=== PATIENT | male | born 1975 | race American Indian/Alaskan Native ===

== ENCOUNTER 2018-04-07 11:38 | Inpatient (IN) | payer OTHER ==
[~2018-04-07] VITALS: Ht 177.8 cm; Wt 122.1 kg
[2018-04-07] MEDS ORDERED: ZOSYN 3.375GM+NS 50ML 50 ML IV ONE (12:20)
[2018-04-07] MEDS ORDERED: SODIUM CHLORIDE 0.9% 50 ML IV ONE (12:21)
[2018-04-07 12:25] LABS: BASOPHILS % (AUTO) 0.6 % (0.0-5.0); EOSINOPHILS % (AUTO) 2.4 % (0.0-8.0); HEMATOCRIT 45.7 % (42-54); LYMPHOCYTES % (AUTO) 17.5 % (21.0-51.0); MEAN CORPUSCULAR HEMOGLOBIN 30.8 pg (27.0-33.0); MEAN CORPUSCULAR HGB CONC 33.5 g/dL (32.0-36.0); MEAN CORPUSCULAR VOLUME 92.1 fL (79-99); MONOCYTES % (AUTO) 20.2 % (3.0-13.0); NEUTROPHILS % (AUTO) 59.3 % (40.0-77.0); NUCLEATED RED BLOOD CELLS 0.1 % (0.0-0.19); PLATELET COUNT (AUTO) 106 K/uL (130-400); RED BLOOD CELL COUNT(AUTO) 4.96 MIL/uL (4.50-6.20); RED CELL DISTRIBUTION WIDTH 13.8 % (11.0-15.5); WHITE BLOOD COUNT (AUTO) 4.5 K/uL (4.8-10.8)
[2018-04-07 13:02] LABS: APPEARANCE,URINE Clear (CLEAR); BILIRUBIN,URINE Negative (NEGATIVE); COLOR,URINE Dark Yellow (YELLOW); GLUCOSE, URINE (UA) >=1000 mg/dL (NEGATIVE); KETONES,URINE Trace mg/dL (NEGATIVE); LEUKOCYTE ESTERASE ,URINE Negative (NEGATIVE); NITRATE,URINE Negative (NEGATIVE); OCCULT BLOOD,URINE Negative (NEGATIVE); PH,URINE 6.5 (5.0-8.0); PROTEIN,URINE POS 1+ (NEGATIVE)
[2018-04-07 13:04] LABS: POTASSIUM 3.7 mmol/L (3.5-5.1)
[2018-04-07 13:07] LABS: BACTERIA,URINE Rare /HPF (None Seen); RBC,URINE 0-1 /HPF (0-1); SQUAMOUS EPITHELIAL CELL,UR Rare /HPF (0-2); WBC,URINE 0-1 /HPF (0-1)
[2018-04-07 13:08] LABS: ALBUMIN 3.7 g/dL (3.5-5.0); TOTAL PROTEIN, SERUM 8.4 g/dL (6.0-8.3)
[2018-04-07] MEDS ORDERED: IOHEXOL-350 75 ML VIAL IV ONE (13:08)
[2018-04-07] MEDS ORDERED: VANCOMYCIN 1GM+NS 250ML 250 ML IV ONE (13:45)
[2018-04-07] MEDS ORDERED: VANCOMYCIN PROTOCOL PER PHARMACY IV PRN (15:30)
[2018-04-07] MEDS ORDERED: VANCOMYCIN 1GM+NS 250ML 250 ML IV SCH (15:30)
[2018-04-07] MEDS ORDERED: HYDRALAZINE HCL 20 MG/ML VIAL IV PRN (15:30)
[2018-04-07] MEDS ORDERED: DOXYCYCLINE 100MG+NS 250ML 250 ML IV SCH (16:00)
[2018-04-07 17:02] LABS: HEMOGLOBIN A1C 9.3 % (4.0-6.0)
[2018-04-07 17:06] LABS: % IRON SATURATION 48.5 % (30-44)
[2018-04-07 17:50] VITALS: BP 147/75
[2018-04-07] MEDS ORDERED: COMPOUND IV REFRIGERATED 1 EACH IVSOLN MISC PRN (19:30)
[2018-04-07] MEDS: ACETAMINOPHEN-CODEINE 300/30MG TAB PO PRN (19:50)
[2018-04-07 20:24] VITALS: BP 142/84
[2018-04-07] MEDS: MORPHINE SULFATE 4 MG/1ML SYG IM PRN (23:44)
[2018-04-07] MEDS: SODIUM CHLORIDE 0.9% 1000ML 1,000 ML IV SCH (23:47)
[2018-04-07] MEDS: METFORMIN HCL 500 MG TABLET PO SCH (23:52)
[2018-04-07] MEDS: CEFTAZIDIME PENTAHYDRATE 2 GM/VIAL IVP SCH (23:52)
[2018-04-08] MEDS: VANCOMYCIN 1.75 GM in SODIUM CHLORIDE 0.9% 250 ML IV SCH ×3 (00:02→22:28)
[2018-04-08 00:28] VITALS: BP 132/76
[2018-04-08] MEDS: SODIUM CHLORIDE 0.9% 1000ML 1,000 ML IV SCH ×3 (01:46→19:39)
[2018-04-08 04:14] VITALS: BP 134/83
[2018-04-08 04:59] LABS: CHOLESTEROL 136 mg/dL (<200); HDL CHOLESTEROL 29 mg/dL (29-71); LDL DIRECT 95 mg/dL (0-99); TRIGLYCERIDES 110 mg/dL (30-200)
[2018-04-08] MEDS: CEFTAZIDIME PENTAHYDRATE 2 GM/VIAL IVP SCH ×2 (06:03→17:57)
[2018-04-08 07:00] VITALS: BP 140/84
[2018-04-08] MEDS: GLIPIZIDE 5 MG TABLET PO SCH (09:46)
[2018-04-08] MEDS: METFORMIN HCL 500 MG TABLET PO SCH ×3 (09:46→17:57)
[2018-04-08] MEDS: ENOXAPARIN SODIUM 40 MG/0.4 ML SYRINGE SQ SCH (09:48)
[2018-04-08] MEDS: MORPHINE SULFATE 4 MG/1ML SYG IM PRN ×3 (09:48→23:11)
[2018-04-08 12:00] VITALS: BP 139/80
[2018-04-08 16:00] VITALS: BP 134/78
[2018-04-08] MEDS: INSULIN HUMULIN R 100 UNIT/ML 3ML SQ SCH ×2 (16:30→20:44)
[2018-04-08] MEDS: ACETAMINOPHEN-CODEINE 300/30MG TAB PO PRN (18:53)
[2018-04-08 19:44] VITALS: BP 134/75
[2018-04-09] MEDS: SODIUM CHLORIDE 0.9% 1000ML 1,000 ML IV SCH ×3 (03:41→17:46)
[2018-04-09 04:42] VITALS: BP 138/93
[2018-04-09] MEDS: CEFTAZIDIME PENTAHYDRATE 2 GM/VIAL IVP SCH ×2 (04:56→18:59)
[2018-04-09] MEDS: INSULIN HUMULIN R 100 UNIT/ML 3ML SQ SCH ×4 (06:15→21:00)
[2018-04-09 08:00] VITALS: BP 139/81
[2018-04-09 08:42] LABS: HEMATOCRIT 41.2 % (42-54); MEAN CORPUSCULAR HEMOGLOBIN 31.1 pg (27.0-33.0); MEAN CORPUSCULAR HGB CONC 33.7 g/dL (32.0-36.0); MEAN CORPUSCULAR VOLUME 92.5 fL (79-99); PLATELET COUNT (AUTO) 111 K/uL (130-400); RED BLOOD CELL COUNT(AUTO) 4.46 MIL/uL (4.50-6.20); RED CELL DISTRIBUTION WIDTH 13.6 % (11.0-15.5); WHITE BLOOD COUNT (AUTO) 4.6 K/uL (4.8-10.8)
[2018-04-09 08:51] LABS: ALBUMIN 3.1 g/dL (3.5-5.0); BILIRUBIN,TOTAL 1.5 mg/dL (0.2-1.0); CREATININE 0.9 mg/dL (0.5-1.5); POTASSIUM 3.7 mmol/L (3.5-5.1); TOTAL PROTEIN, SERUM 7.5 g/dL (6.0-8.3)
[2018-04-09] MEDS: METFORMIN HCL 500 MG TABLET PO SCH ×3 (10:34→18:58)
[2018-04-09] MEDS: GLIPIZIDE 5 MG TABLET PO SCH (10:34)
[2018-04-09] MEDS: ACETAMINOPHEN-CODEINE 300/30MG TAB PO PRN ×2 (10:35→19:08)
[2018-04-09] MEDS: ENOXAPARIN SODIUM 40 MG/0.4 ML SYRINGE SQ SCH (10:36)
[2018-04-09] MEDS: VANCOMYCIN 2 GM in SODIUM CHLORIDE 0.9% 500ML 500 ML IV SCH ×2 (10:37→22:59)
[2018-04-09 12:00] VITALS: BP 140/85
[2018-04-09] MEDS: MORPHINE SULFATE 4 MG/1ML SYG IVP PRN (13:54)
[2018-04-09 16:00] VITALS: BP_SYST 105; BP_SYST 141; BP_DIAS 45; BP_DIAS 85
[2018-04-09 19:20] VITALS: BP 130/80
[2018-04-09] MEDS: MORPHINE SULFATE 4 MG/1ML SYG IM PRN (23:13)
[2018-04-10 00:38] VITALS: BP 142/82
[2018-04-10 04:20] VITALS: BP 131/82
[2018-04-10] MEDS: SODIUM CHLORIDE 0.9% 1000ML 1,000 ML IV SCH ×2 (04:53→09:35)
[2018-04-10 05:10] LABS: HEMATOCRIT 41.7 % (42-54); MEAN CORPUSCULAR HGB CONC 34.3 g/dL (32.0-36.0); MEAN CORPUSCULAR VOLUME 93.5 fL (79-99); PLATELET COUNT (AUTO) 143 K/uL (130-400); RED BLOOD CELL COUNT(AUTO) 4.46 MIL/uL (4.50-6.20); RED CELL DISTRIBUTION WIDTH 13.9 % (11.0-15.5); WHITE BLOOD COUNT (AUTO) 6.3 K/uL (4.8-10.8)
[2018-04-10 05:20] LABS: CREATININE 0.9 mg/dL (0.5-1.5); POTASSIUM 3.6 mmol/L (3.5-5.1)
[2018-04-10] MEDS: CEFTAZIDIME PENTAHYDRATE 2 GM/VIAL IVP SCH ×2 (05:33→18:42)
[2018-04-10] MEDS: INSULIN HUMULIN R 100 UNIT/ML 3ML SQ SCH ×4 (06:28→21:00)
[2018-04-10] MEDS: GLIPIZIDE 5 MG TABLET PO SCH (06:45)
[2018-04-10 08:46] VITALS: BP 141/85
[2018-04-10] MEDS: METFORMIN HCL 500 MG TABLET PO SCH ×3 (09:33→18:42)
[2018-04-10] MEDS: ENOXAPARIN SODIUM 40 MG/0.4 ML SYRINGE SQ SCH (09:33)
[2018-04-10] MEDS: VANCOMYCIN 2 GM in SODIUM CHLORIDE 0.9% 500ML 500 ML IV SCH ×2 (09:34→21:32)
[2018-04-10 12:37] VITALS: BP 141/80
[2018-04-10] MEDS: MORPHINE SULFATE 4 MG/1ML SYG IVP PRN ×2 (13:18→21:40)
[2018-04-10 17:03] VITALS: BP 135/79
[2018-04-10] MEDS ORDERED: DiphenhydrAMINE HCL 50 MG/ML VIAL IM PRN (18:30)
[2018-04-10 19:22] VITALS: BP 149/90
[2018-04-11] VITALS: BP 144/81
[2018-04-11 04:15] VITALS: BP 150/86
[2018-04-11] MEDS: CEFTAZIDIME PENTAHYDRATE 2 GM/VIAL IVP SCH ×2 (05:35→18:31)
[2018-04-11] MEDS: SODIUM CHLORIDE 0.9% 1000ML 1,000 ML IV SCH ×2 (05:39→09:14)
[2018-04-11 05:43] LABS: HEMATOCRIT 40.3 % (42-54); MEAN CORPUSCULAR HGB CONC 33.7 g/dL (32.0-36.0); MEAN CORPUSCULAR VOLUME 92.1 fL (79-99); PLATELET COUNT (AUTO) 118 K/uL (130-400); RED BLOOD CELL COUNT(AUTO) 4.38 MIL/uL (4.50-6.20); RED CELL DISTRIBUTION WIDTH 13.6 % (11.0-15.5); WHITE BLOOD COUNT (AUTO) 6.4 K/uL (4.8-10.8)
[2018-04-11 05:53] LABS: CRP QUANTITATIVE 19.7 mg/L (0.00-9.0); POTASSIUM 3.4 mmol/L (3.5-5.1)
[2018-04-11] MEDS: INSULIN HUMULIN R 100 UNIT/ML 3ML SQ SCH ×4 (06:40→21:00)
[2018-04-11] MEDS: GLIPIZIDE 5 MG TABLET PO SCH (07:07)
[2018-04-11 07:12] LABS: ERYTHROCYTE SEDIMENTATION RATE 35 MM/HR (0-15)
[2018-04-11 08:00] VITALS: BP 142/89
[2018-04-11] MEDS ORDERED: METFORMIN HCL 500 MG TAB.SR.24H PO SCH (08:00)
[2018-04-11] MEDS: METFORMIN HCL 500 MG TABLET PO SCH ×2 (08:00→11:40)
[2018-04-11] MEDS: ENOXAPARIN SODIUM 40 MG/0.4 ML SYRINGE SQ SCH (09:00)
[2018-04-11] MEDS: VANCOMYCIN 2 GM in SODIUM CHLORIDE 0.9% 500ML 500 ML IV SCH ×2 (09:14→22:35)
[2018-04-11] MEDS: ACETAMINOPHEN-CODEINE 300/30MG TAB PO PRN ×2 (09:22→18:30)
[2018-04-11 12:00] VITALS: BP 155/92
[2018-04-11 16:00] VITALS: BP 147/82
[2018-04-11] MEDS: METFORMIN HCL 850 MG TABLET PO SCH (18:30)
[2018-04-11 19:54] VITALS: BP 144/89
[2018-04-11] MEDS: POTASSIUM CHLORIDE 10% ELIXIR 20 MEQ/15 ML UDCUP PO SCH (22:36)
[2018-04-11] MEDS: MORPHINE SULFATE 4 MG/1ML SYG IVP PRN (22:44)
[2018-04-12] VITALS: BP 153/90
[2018-04-12 03:49] VITALS: BP 138/57
[2018-04-12 04:26] LABS: HEMATOCRIT 40.5 % (42-54); MEAN CORPUSCULAR HEMOGLOBIN 31.7 pg (27.0-33.0); MEAN CORPUSCULAR HGB CONC 34.3 g/dL (32.0-36.0); MEAN CORPUSCULAR VOLUME 92.5 fL (79-99); PLATELET COUNT (AUTO) 141 K/uL (130-400); RED BLOOD CELL COUNT(AUTO) 4.38 MIL/uL (4.50-6.20); RED CELL DISTRIBUTION WIDTH 13.6 % (11.0-15.5); WHITE BLOOD COUNT (AUTO) 5.3 K/uL (4.8-10.8)
[2018-04-12 04:33] LABS: CREATININE 0.9 mg/dL (0.5-1.5); POTASSIUM 3.4 mmol/L (3.5-5.1)
[2018-04-12] MEDS: INSULIN HUMULIN R 100 UNIT/ML 3ML SQ SCH ×3 (06:00→16:30)
[2018-04-12] MEDS: SODIUM CHLORIDE 0.9% IVP SCH ×2 (06:37→18:27)
[2018-04-12] MEDS: CEFTAZIDIME PENTAHYDRATE IVP SCH ×2 (06:37→18:27)
[2018-04-12] MEDS ORDERED: MAGNESIUM 2GM PREMIX 50ML 50 ML IV SCH (07:00)
[2018-04-12] MEDS: GLIPIZIDE 5 MG TABLET PO SCH (07:33)
[2018-04-12 08:00] VITALS: BP 146/88
[2018-04-12] MEDS: POTASSIUM CHLORIDE 10% ELIXIR 20 MEQ/15 ML UDCUP PO SCH (08:00)
[2018-04-12] MEDS: METFORMIN HCL 850 MG TABLET PO SCH ×2 (08:01→16:44)
[2018-04-12] MEDS: ENOXAPARIN SODIUM 40 MG/0.4 ML SYRINGE SQ SCH (08:02)
[2018-04-12 11:00] VITALS: BP 139/87
[2018-04-12] MEDS: VANCOMYCIN 2 GM in SODIUM CHLORIDE 0.9% 500ML 500 ML IV SCH (11:01)
[2018-04-12] MEDS ORDERED: METF750T2 PO (16:27)
== END 2018-04-12 18:53 | disposition home or self-care (01) | DRG 872 ==
LOC: EDH 11:38 → EDHIP 11:39 → 3AH 18:07
PROVIDERS: ADMIT Internal Medicine; ATTEND Internal Medicine
PROC: 5A09357 Assistance with Respiratory Ventilation, Less than 24 Consecutive Hours, Continuous Positive Airway Pressure (ICD-10-PCS; principal; 2018-04-08)
PROC: 5A09357 Assistance with Respiratory Ventilation, Less than 24 Consecutive Hours, Continuous Positive Airway Pressure (ICD-10-PCS; 2018-04-09)
PROC: 5A09357 Assistance with Respiratory Ventilation, Less than 24 Consecutive Hours, Continuous Positive Airway Pressure (ICD-10-PCS; 2018-04-10)
PROC: 5A09357 Assistance with Respiratory Ventilation, Less than 24 Consecutive Hours, Continuous Positive Airway Pressure (ICD-10-PCS; 2018-04-11)
PROC: 5A09357 Assistance with Respiratory Ventilation, Less than 24 Consecutive Hours, Continuous Positive Airway Pressure (ICD-10-PCS; 2018-04-12)
DX: A41.9 Sepsis, unspecified organism (principal); Z99.11 Dependence on respirator [ventilator] status; N49.2 Inflammatory disorders of scrotum; E11.65 Type 2 diabetes mellitus with hyperglycemia; E86.1 Hypovolemia; G47.33 Obstructive sleep apnea (adult) (pediatric); E66.9 Obesity, unspecified; E87.6 Hypokalemia; B95.1 Streptococcus, group B, as the cause of diseases classified elsewhere; N50.3 Cyst of epididymis; I10 Essential (primary) hypertension; K21.9 Gastro-esophageal reflux disease without esophagitis; L30.4 Erythema intertrigo; Z68.38 Body mass index [BMI] 38.0-38.9, adult; Z90.49 Acquired absence of other specified parts of digestive tract; Z98.1 Arthrodesis status
CPT/HCPCS: 36415; 74177; 76870; 80048; 80053; 80061; 80202; 81001; 82948; 83036; 83540; 83550; 83605; 83735; 85025; 85027; 85651; 86140; 87040; 87070; 87076; 87077; 87186; 94660; A4218; G0378; J0713; J1200; J1650; J2270; J2543; J3370; J3475; J7030; J7040; Q9967